=== PATIENT | female | born 1970 | race Caucasian/White ===

== ENCOUNTER 2017-03-18 09:26 | Day surgery (SDC) | payer OTHER ==
[~2017-03-18] VITALS: Ht 149.9 cm; Wt 83.6 kg
[2017-03-18] VITALS (14 sets, daily range): BP systolic 121–136; BP diastolic 66–85; PULSE 83–112; RESP 9–18; O2SAT 91–99
[2017-03-18] MEDS: Lactated Ringer's 1,000 ML IV SCH ×4 (05:00→16:29)
[~2017-03-18 09:26] MED LIST: CeFAZolin Inj 2 GM in IV Premix 1 EACH IV ONE; Dextrose 10% 250 ML IV ONE; IBUP-1827 PO; LISI-567 PO; Phenazopyridine 97.5 mg Tablet PO ONE; VENL150C PO; tylenol
[2017-03-18] MEDS ORDERED: Dexamethasone 4 mg/mL Inj ONE (09:27)
[2017-03-18] MEDS ORDERED: Phenylephrine/NS 100 mCg/mL 10 mL Syringe IVPUSH ONE (09:27)
[2017-03-18] MEDS ORDERED: Propofol 10,000 mCg/mL 20 mL Inj ONE (09:27)
[2017-03-18] MEDS ORDERED: Rocuronium 10 mg/mL 5 mL Inj ONE (09:27)
[2017-03-18] MEDS ORDERED: MetoCLOpramide 5 mg/mL 2 mL Inj ONE (09:27)
[2017-03-18] MEDS ORDERED: fentaNYL-PF 50 mCg/mL 2 mL Inj ONE (09:27)
[2017-03-18] MEDS ORDERED: Ondansetron 2 mg/mL 2 mL Inj ONE (09:27)
--- NOTE | 2017-03-18 10:40 | PCM.HPANE ---
Patient Data Date of Service: Mar 18, 2017 (1010) Surgeon Admitting Provider: Attending Provider:Brian Arias MD Primary Care Physician:Matilda Hodges MD Other Provider:Celina Del Toro Anesthesia Reason for Visit Rectocele, Vault Prolapse, Stress Incontinence Ht/WT & BMI Height (Feet): 4 Height (Inches): 11.00 Weight (Kilograms): 81.9 Body Mass Index 36.00 Allergies Coded Allergies: Sulfa (Sulfonamide Antibiotics) (Verified Allergy, Unknown, nausea, vomiting, 03/13/17) codeine (Verified Allergy, Unknown, hives, 03/13/17) Uncoded Allergies: COMBINED IODINE (Allergy, Unknown, nausea/vomiting, 03/13/17) pt experienced after drinking contrast and IV contrast for diagnostic study. No reaction to topical iodine Past Anesthesia History Anesthesia History: Denies:: Abnormal Airway, Anesthesia Reactions, Difficult Intubation, Fam Anesthesia Reaction Diabetes History Hx Diabetes?: No MRSA MRSA: No Medications Hypertension Medication: Yes Home Meds Incl Beta Roya: No Reported Medications [tylenol] 500mg No Conflict Check2 Tab Q8H PRN For Pain 03/13/17 Lisinopril 20 Mg [id number] Mg PO DAILY 30 Days Ref 0 03/13/17 Ibuprofen 600 Mg [id number] Mg PO QID PRN For Pain Ref 0 03/13/17 Venlafaxine ER (Effexor XR)150 Mg [id number] Mg PO DAILY Ref 0 03/13/17 History History of ENT Problems?: Yes HEENT History: Positive for:: TMJ (grinds teeth, no nightguard) Denies:: Abnormal Airway Cataracts Difficult Intubation Dysphagia Glaucoma Hearing Problem Sinus Problem Denture Type: None Teeth Condition: Within Normal Limits Hx of Heart Problems?: No Cardiovascular History: Positive for:: Hypertension Denies:: AICD Abdominal Aortic Aneurism Atrial Fibrillation Cardiac Surgery Chest Pain Congestive Heart Failure Coronary Artery Disease Edema Heart Murmur Irregular Heartbeat Pacemaker Peripheral Vascular Rheumatic Fever Thrombophlebitis Valvular Heart Disease Hx of Respiratory Problem?: No Respiratory History: Denies:: Asthma COPD Chest Surgery Cough Dyspnea Emphysema Hemoptysis Oxygen Administration Pneumonia Pulmonary Embolism Tuberculosis Use of C-PAP Machine Use of Inhalers / NEBS Hx Neurologic Problems?: Yes Neurological History: Positive for:: TIA (unsure of whether she had TIA- vs seizure has not been dx) Denies:: Alzheimer's Disease CVA Dementia Dizziness Headaches Multiple Sclerosis Parkinson's Disease Peripheral Neuropathy Seizures Hx of GI Problems?: Yes Gastrointestinal History: Denies:: Cirrhosis Diverticulitis Gall Bladder Disease Gastroesphageal Reflux Gastrointestinal Bleeding Heartburn Hepatitis Hiatal Hernia Liver Disease Rectal Bleeding Hx of Problems?: Yes Genitourinary History: Positive for:: Kidney Stones (past hx of 2 lithotripsy , ) Urinary Tract Infection (recurrent - takes daily macrodantin to prevent) Denies:: HX of Hemodialysis HX of Peritoneal Dialysis: No Female Hx: Denies:: Currently Endometriosis Pelvic Inflammatory Problems with Breasts? Skin History: Denies:: History Skin Disorders? Pressure Ulcers Hx Musculoskeletal Problems?: Yes Musculoskeletal History: Positive for:: Musculoskeletal Trauma (seeing orthopedist for left shoulder concerns) Osteoarthritis Denies:: Back Injury Degenerative Joint Fibromyalgia Joint Replacement Myasthenia Gravis Rheumatoid Arthritis Systemic Lupus Hx of Psycho/Social Problems?: No Psycho Social History: Denies:: Anxiety Bipolar Disorder Hx Depression Suicide Attempt Hx Surgeries?: Yes (gastroschisis as , cysto, stent ) Hx Any Other Health Problems?: Yes Other History: Positive for:: Cancer (cervical) Denies:: Endocrine Disease Hospitalization Thyroid Disease History Blood Transfusions: Positive for:: Accept Blood Products? Denies:: Blood Transfuse Reaction Blood Transfusions Hx Diabetes: No Hx Alcohol Use: YesAlcoholic Drinks Per Day: 2 drinks weeklyHx Substance Use: NoHave You Smoked inLast 12 mo: No Stop/Bang P-Blood Pressure: treated: Yes B- Body Mass Index > 35 kg/m2: Yes A- Age over 50: No N- Neck Large Circumference: No G- Gender Male: No Risk Assessment Category Category 1A: Patient has history of documented sleep apnea, and HAS NOT received any narcotic, sedative or anesthesia administration during this stay. Category 1B: Patient has history of documented sleep apnea, and HAS received any narcotic , sedative or anesthesia administration during this stay Category 2: Patient has SUSPECTED Obstructive Sleep Apnea, and HAS received any narcotic , sedative or anesthesia administration during this stay. Category 3: Patient has SUSPECTED Obstructive Sleep Apnea and HAS NOT received narcotic, sedative or anesthesia administration during this stay. Category 4: Outpatient in Procedural Areas with known sleep apnea or who screen positive for High Risk via the STOP/BANG questionnaire. Exam Exam Vital Signs Vital Signs Date Time Temp Pulse Resp B/P Pulse Ox O2 Delivery O2 Flow Rate FiO2 03/18/17 09:52 35.4 83 16 136/76 98 Room Air General Appearance: Alert, Oriented X3, Cooperative, No Acute Distress HEENT/AIRWAY: MP 2, Neck Movement (FROM), Mouth Opening (3 fbmo) Lungs: Clear to Auscultation, Normal Air Movement Heart: Exam Unremarkable, Regular Rate/Rhythm, No Murmurs/Rubs/Gallops Meds/Labs/Diagnostics Admission Meds Current Medications Lactated Ringer's (Lr) 1,000 ml @ 120 mls/hr Q8H20M IV Last administered on t 06:16; Start 03/18/17 at 05:00; Stop 03/18/17 at 13:19 Plan Impression Patient chart reviewed, patient interviewed and anesthestic plan with risks, benefits, and alternatives discussed, and informed consent obtained. NPO per Anesth. Guidelines: Yes ASA Physical Status: ASA2 Mod Systemic Disease Anesthetic Plan: GA Bene/Risks/Altern/Consents: Yes HP Complete Prior to Induction: Yes Jesus Valdes MD Mar 18, 2017 10:40
[2017-03-18] MEDS ORDERED: Lactated Ringer's 500 ML IV PRN (11:07)
[2017-03-18] MEDS ORDERED: Lactated Ringer's 1,000 ML IV SCH (11:07)
[2017-03-18] MEDS ORDERED: Ondansetron 2 mg/mL 2 mL Inj IVPUSH PRN (11:10)
[2017-03-18] MEDS ORDERED: MetoCLOpramide 5 mg/mL 2 mL Inj IVPUSH PRN ×2 (11:10→13:40)
[2017-03-18] MEDS ORDERED: fentaNYL-PF 50 mCg/mL 2 mL Inj IVPUSH PRN (11:10)
[2017-03-18] MEDS ORDERED: Labetalol 5 mg/mL 20 mL Inj IV PRN (11:10)
[2017-03-18] MEDS ORDERED: Phenylephrine 10,000 mCg/mL Inj IVPUSH PRN (11:10)
[2017-03-18] MEDS ORDERED: Atropine 0.4 mg/mL Inj IVPUSH PRN (11:10)
[2017-03-18] MEDS ORDERED: EPHEDrine Sulfate 50 mg/mL Inj IVPUSH PRN (11:10)
[2017-03-18] MEDS ORDERED: Sodium Chloride Bacteriostatic 30 mL Inj INJ ONE (11:15)
[2017-03-18] MEDS ORDERED: Lidocaine 1%-Epi 1:100,000 20 mL Inj INJ ONE (11:15)
[2017-03-18] MEDS ORDERED: Gentamicin 40 mg/mL 2 mL Inj IRRIGATION ONE (11:16)
[2017-03-18] MEDS ORDERED: Estrogens Conjugated 30 Gm Vaginal Cream VAGINAL ONE (13:18)
[2017-03-18] MEDS ORDERED: Lactated Ringer's 1,000 ML IV ONE (13:20)
[2017-03-18] MEDS ORDERED: diphenhydrAMINE 25 mg Capsule PO PRN (13:40)
[2017-03-18] MEDS ORDERED: Alum-Mag Hydrox-Simeth 30 mL Suspension PO PRN (13:40)
--- NOTE | 2017-03-18 14:10 | PCM.SURGOP ---
Surgical Operative Report Date of Service: Mar 18, 2017 Pre Operative Diagnosis 1. Stress incontinence in female N39.3 (625.6): Urodynamics revealed urodynamic stress incontinence. 2. Rectocele N81.6 (618.04): 3. 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 Stress incontinence in female N39.3 (625.6): Urodynamics revealed urodynamic stress incontinence. 2. POPQ stage 2 Rectocele N81.6 (618.04): 3. POPQ stage 2 Vaginal vault prolapse after hysterectomy N99.3 (618.5): Procedure: 1. posterior colpoperineorrhaphy 2. high uterosacral ligament vaginal vault suspension. 3. TVT-obturator sling and cystoscopy Surgeon and [employer] Representatives: Surgeon: Brian Arias MD Assistants: Sujatha Sargent MD Indication for Procedure Her assessment includes: 1. Stress incontinence in female N39.3 (625.6): Urodynamics revealed urodynamic stress incontinence. 2. Rectocele N81.6 (618.04): 3. Vaginal vault prolapse after hysterectomy N99.3 The patient is a candidate for surgical management in the form of:. posterior repair with possible biologic graft augmentation, high uterosacral ligament vaginal vault suspension. enterocele repair. and TVT- obturator sling. The patient signed the consent form. She agreed with the risks, benefits, and alternatives to surgery. The risks included but not limited to recurrence or persistence of prolapse, recurrence of persistence of incontinence, development of voiding dysfunction, development of urinary urgency, urgency incontinence, frequency, and need for intermittent self-catheterization or prolonged indwelling catheterization, injury to other organs including bladder, bowel, nerves or blood vessels. Need for blood transfusion, need for temporary colostomy or urinary stenting. Development of vaginal scarring, dyspareunia, defecatory dysfunction, recurring pain, hematoma formation, urinary tract infection, cellulitis, necrotizing fascitis, and medical risks including myocardial infarction, stroke or VTE. She also understood the FDA warnings associated with the use of vaginal mesh (dysparunia, vaginal erosion, erosion into bowel/bladder/urethra, requiring further surgery to correct these complications). The patient understood the risks and benefits and consented to surgery Findings: see dictation Procedure Details SURGICAL TECHNIQUE: The patient was brought to the operating room and was placed under general anesthesia. She was prepped and draped in the normal fashion for vaginal surgery with the legs in Yellofin stirrups. She was given a dose of IV Ancef intraoperatively. She received 200 mg of oral pyridium 30 min prior to the onset of surgery. 1. Posterior colpoperineorrhaphy: Lidocaine 0.5% with 1:200,000 of epinephrine was infiltrated along the perineum and posterior vaginal wall mucosa. A thin alcides-shaped incision was made through the perineum and a vertical incision through the posterior vagina with a scalpel. The vaginal mucosa was dissected off the underlying rectovaginal tissues. It was noted the rectovaginal fascial tissues were not thin nor deficient. During the dissection along the apex, an the cul-de-sac was entered with sharp dissection. The rest of the posterior repair would be completed later in the procedure. 2. High uterosacral ligament vaginal vault suspension and enterocele repair: Mini laparotomy sponges were packed to retract the bowel upwards. A pair of Allis clamps were placed along the intraperitoneal portions of the vagina at the 5 and 7 o'clock positions. Tension along the left Allis clamp allowed for identification of the left uterosacral ligament. However, there was significant adhesions along the right pelvic sidewall so that we decided not to place any vault sutures along the right pelvis. Careful palpation of the left ureter was performed to note its location relative to the uterosacral ligaments. Three 0 Vicryl sutures were passed around the left uterosacral ligament of the level of the ischial spines. We then proceeded with cystoscopy. Cystoscopy revealed a normal appearing urethra and bladder. While applying tension along the vault sutures, both ureteric orifices were visualized and noted to be functional by the brisk spillage of pyridium-stained urine on numerous occasions The rectocele was then plicated in a two layers using 2-0 Vicryl suture in an interrupted fashion. MInimal excess posterior vaginal mucosa was needed to be excised. The high uterosacral ligament vault suspension sutures were passed through the planned apex of the vagina. The vagina was then reapproximated using 3-0 Vicryl suture in a running locked fashion. The perineum was reapproximated using 2-0 Vicryl suture in an interrupted fashion. The skin was reapproximated using 3-0 Vicryl suture in a subcuticular fashion. The high uterosacral ligament vaginal vault suspension sutures were tied and this elevated the apex of the vagina high up into the hollow of the sacrum. 3. TVT-Obturator sling and cystoscopy. Lidocaine 0.5% with epinephrine was infiltrated along the anterior vaginal wall mucosa at the level of the mid urethra. Midline vertical incision was made at that level, 2 periurethral tunnels were created with Metzenbaum scissors. Two stab incisions were created at the skin at the groin at a level 2 cm superior to the external urethral meatus and 2 cm lateral to the fold created between the vulva and thigh. Shanks catheter had already been inserted. A butterfly guide was inserted into the right periurethral tunnel, a curved helical needle was inserted on top of the guide and rotated out to the ipsilateral skin incision. The same procedure was performed on the contralateral side. Next the Shanks catheter was removed. Cystoscopy was performed. There was no inadvertent penetration of the sling to the vagina, urethra or bladder. The bladder appeared normal. Both ureteric orifices were visualized and noted to be functional by the brisk spillage of pyridium-stained urine on numerous occasions. The plastic sheaths of the sling were removed. The bladder was filled with 300 mL of sterile water. Using the Crede maneuver, sling tension was appropriately adjusted. Also a right angle clamp was allowed to easily pass behind the sling so that the sling was placed in a tension-free manner. The sling ends were cut at the level of the skin. The skin was reapproximated using Mastisol, Steri-Strips and band-aids. The vagina was reapproximated using 3-0 Vicryl suture in a running fashion. The estimated blood loss was approximately 200 mL. There were no complications. All sponges and instruments were accounted for. The patient was taken to the recovery room in stable condition. Complications There were no periprocedural complications identified. Surgical Specimen Removed: No Specimen sent to Pathology: No Anesthetic Plan: GA Grafts, Implants: Implants-See Implant Record Output, Estimated Blood Loss: 200 (ml EBL) Blood Administration during gray: No Drains: None Catheters: Urethral 2 Way Shanks Post Operative Plan overnight stay in bed as she requires a voiding trial in the am (outpatient) copies to: Sujatha Sargent MD; Brian Arias MD, William Andre Z MD Mar 18, 2017 14:10
[2017-03-18] MEDS: HYDROmorphone 1 mg/mL Inj IVPUSH PRN ×2 (14:20→14:28)
--- NOTE | 2017-03-18 14:38 | PCM.ANEP1 ---
Post Anesthesia PACU Phase 1 Assessment Vital Signs Vital Signs Date Time Temp Pulse Resp B/P Pulse Ox O2 Delivery O2 Flow Rate FiO2 03/18/17 14:15 93 12 128/71 96 Nasal Cannula 3 03/18/17 14:00 91 10 127/68 93 Nasal Cannula 3 03/18/17 13:50 92 14 126/66 91 Room Air 03/18/17 13:45 91 13 121/72 91 Room Air 03/18/17 13:40 86 13 131/74 96 Room Air 03/18/17 13:35 87 10 131/76 96 Simple Mask 8 03/18/17 13:33 36.5 86 9 134/70 97 Simple Mask 8 03/18/17 09:52 35.4 83 16 136/76 98 Room Air Anesthetic Administered: GA Level of Alertness: Awake, talking FARRIS's with Equal Strength: Yes Pain: No Nausea or Vomiting: No CV Function & Hydration Stable: Yes Airway Device: n/a Oxygen Delivery: Room Air Lungs: Clear to Auscultation, Normal Air Movement Dermatome Level: Full Sensation PACU Phase 2 Assessment Complications: No Follow up Care: N/A Patient Instructions Provided: N/A Jesus Valdse MD Mar 18, 2017 14:38
--- NOTE | 2017-03-18 15:33 | NUR ---
Postop Postop from gynecological Sx by [place]. Pt able to move over to bed from [facility] on own. Shanks catheter in place draining to gravity orange urine. IV Right FA in use. A&OX4 although sleepy. Pain 5/10 pressure in buttock area. Vag packing in place with annamarie pad. 2L NC to keep SPO2 >92%. Care continues
[2017-03-18] MEDS: Acetaminophen IV 1,000 MG in IV Premix 1 EACH IV SCH ×2 (16:29→22:41)
[2017-03-18] MEDS: Ondansetron 2 mg/mL 2 mL Inj IVPUSH PRN (20:37)
[2017-03-19 00:43] VITALS: BP 128/73; PULSE 102; RESP 18; O2SAT 94
[2017-03-19] MEDS: Lactated Ringer's 1,000 ML IV SCH ×3 (02:01→13:10)
[2017-03-19] MEDS: Ondansetron 2 mg/mL 2 mL Inj IVPUSH PRN ×4 (02:06→16:05)
--- NOTE | 2017-03-19 02:57 | NUR ---
Pain Pt c/o perineal pain and was given routine IV Tylenol and Dilaudid IVP. Pt appears to be asleep after administration without distress. SCDs in place and denies numbness and tingling. VSS. Care continues.
[2017-03-19] MEDS: Acetaminophen IV 1,000 MG in IV Premix 1 EACH IV SCH ×3 (05:10→13:11)
[2017-03-19 05:43] VITALS: BP 134/77; PULSE 101; RESP 18; O2SAT 98
--- NOTE | 2017-03-19 05:52 | NUR ---
Assumed care Assumed care at 0300, patient sleeping, pain medication and anti emetic given prior to assuming care. hourly rounding, as care continues.
[2017-03-19 06:03] LABS: BASOPHILS % (AUTO) 0.1 % (0-3); EOSINOPHILS % (AUTO) 0.2 % (0-5); Mean Corpuscular Hemoglobin 32.4 pg (27.0-35.0); Mean Corpuscular Volume 94.7 fL (81-100); NEUTROPHILS % (AUTO) 76.2 % (40-74); Platelet Count 250 bil/L (150-400)
[2017-03-19] MEDS ORDERED: Heparin 5,000 Unit/mL Inj SUBQ SCH (08:30)
[2017-03-19] MEDS ORDERED: Venlafaxine XR 75 mg ER24 Capsule PO SCH (08:30)
[2017-03-19] MEDS ORDERED: Senna-Docusate 8.6-50 mg Tablet PO SCH (08:30)
[2017-03-19] MEDS: HYDROmorphone 1 mg/mL Inj IVPUSH PRN ×2 (08:48→12:29)
--- NOTE | 2017-03-19 11:54 | PCM.DIGYN ---
Surgical Discharge Instruction Dates of Hospitalization Date of Hospital Admission 03/18/17 outpatient Providers Admitting Physician: Primary Care Physician: Matilda Hodges MD Attending Physician: Brian Arias MD Diagnosis at Time of Discharge Diagnosis at time of discharge 1. Stress incontinence in female N39.3 (625.6): Urodynamics revealed urodynamic stress incontinence. 2. POPQ stage 2 Rectocele N81.6 (618.04): 3. POPQ stage 2 Vaginal vault prolapse after hysterectomy N99.3 (618.5): Post-operative diagnosis 1. Stress incontinence in female N39.3 (625.6): Urodynamics revealed urodynamic stress incontinence. 2. POPQ stage 2 Rectocele N81.6 (618.04): 3. POPQ stage 2 Vaginal vault prolapse after hysterectomy N99.3 (618.5): Problems: Diet Discharge Diet: No restrictions Activity Discharge Activity-General: Restrict lifting to no greater than (10 lbs for 6 wk) Dressing and Incisional Care Dressing Care: Allow Steri Stripes to fall off Hygiene: May shower Follow Up Plan Follow-up appointment: Weeks (2; also f/u in [address] Arias's MA if home with a king catheter) Call your provider for: Fever, Chills, Shortness of breath, Vomitting, Drainage at incision, Heavy vaginal bleeding, Wound redness, Increasing pain Brian Arias MD Mar 19, 2017 11:54
--- NOTE | 2017-03-19 11:58 | PCM.PNSURG ---
Subjective Date of Service: Mar 19, 2017 Date of Service: Mar 19, 2017 Visit Information: Reason for Visit Rectocele, Vault Prolapse, Stress Incontinence Surgery/Surgery Date Post-Op Day # 1 Subjective: AVSS Received a dose of IV dilaudid this am to help with pain control slow to ambulate, but will do so once pain better controlled this am pain well controlled overnight OR explained tolerating feeds, mild nausea requiring IV antiemetics Hct stable Objective Vital Sign- Last 8 Hours Date Time Temp Pulse Resp B/P Pulse Ox O2 Delivery O2 Flow Rate FiO2 03/19/17 05:43 36.8 101 18 134/77 98 Nasal Cannula 2.00 Intake and Output- Last 8 Hour 03/19/17 Cumulative From/Thru 07:00 03/13/17 15:11 - 03/19/17 06:45 Intake Total 2535 ml 4235 ml Output Total 2075 ml 2635 ml Balance 460 ml 1600 ml Intake Oral 600 ml 800 ml IV Total 1935 ml 3435 ml Output Urine Total 2075 ml 2235 ml Estimated Blood Loss 400 ml # Bowel Movements 0 0 General: Alert, Oriented X3, Cooperative Lungs: Clear to Auscultation Abdomen: Benign Result Diagram: 03/19/17 0520 Assessment & Plan Impression stable POD#1 Problems: Plan encourage ambulation Do voiding trial once ambulating D/C home later today VTE Prophylaxis: Sub-Q Heparin (Unfractionated) Resuscitation Status: CPR: Attempt Resuscitation copies to: Matilda Hodges MD; Brian Arias MD, William Andre Z MD Mar 19, 2017 11:58
[2017-03-19 12:59] VITALS: BP 134/86; PULSE 98; RESP 18; O2SAT 95
--- NOTE | 2017-03-19 13:11 | NUR ---
Voiding trial Vaginal packing removed and bladder instilled with 300cc normal saline. Pt able to void 400cc spontaneously within 30 minutes. Is having nausea and pain, resting in bed. Call light in reach, care continues.
--- NOTE | 2017-03-19 16:38 | NUR ---
Discharge Pt discharged at 1620 with family to private vehicle. Pt having pain 7/10 consistent throughout day, pre-medicated prior to discharge. Also having nausea, medications given and pt states she has zofran at home. Pt having minimal vaginal bleeding with urination. Rx's, care notes and discharge instructions given and all questions answered. IV removed intact, VSS, FARRIS, A&O x 3. Has all belongings.
== END 2017-03-18 23:59 | disposition home or self-care (01) ==
LOC: SAS 09:26 → OSC 15:40 → SAS 23:59
PROVIDERS: ATTEND Obstetrics & Gynecology
DX: N99.3 Prolapse of vaginal vault after hysterectomy (principal); N81.6 Rectocele; N39.3 Stress incontinence (female) (male); N81.84 Pelvic muscle wasting; N95.2 Postmenopausal atrophic vaginitis; N39.46 Mixed incontinence; I10 Essential (primary) hypertension; M19.90 Unspecified osteoarthritis, unspecified site; Z87.440 Personal history of urinary (tract) infections; Z90.710 Acquired absence of both cervix and uterus; Z87.442 Personal history of urinary calculi; Z85.41 Personal history of malignant neoplasm of cervix uteri
CPT/HCPCS: 36415; 57250; 57283; 57288; 86850; C1771; J0131; J0690; J1100; J1170; J1580; J2370; J2405; J2704; J2765; J3010; J7120